=== PATIENT | male | born 1945 | race Caucasian/White ===

== ENCOUNTER 2017-05-19 15:42 | Emergency (ER) | payer MEDICARE, OTHER | END 2017-05-19 18:54 | disposition home or self-care (01) | LOC: FTE 15:42 | DX: S79.912A Unspecified injury of left hip, initial encounter (principal); J44.9 Chronic obstructive pulmonary disease, unspecified; F17.210 Nicotine dependence, cigarettes, uncomplicated; W18.39XA Other fall on same level, initial encounter; Y92.9 Unspecified place or not applicable | CPT/HCPCS: 73700; 99284-25 ==

== ENCOUNTER 2017-05-20 14:58 | Emergency (ER) | payer MEDICARE, OTHER ==
[2017-05-20] MEDS: IPRATROPIUM (NEB) 0.5 MG/2.5 ML AMP INH (23:23)
[2017-05-20] MEDS: ALBUTEROL 0.083% (NEB) 2.5 MG/3 ML AMP HHN (23:23)
[2017-05-20 23:45] LABS: ADD MAN DIFF? NO
[2017-05-20 23:47] LABS: BASOPHILS % 0.3 % (0.0-2.0); EOSINOPHILS # 0.1 10^3/ul (0.0-0.5); EOSINOPHILS % 0.6 % (0.0-7.0); HEMOGLOBIN 12.7 g/dl (14.0-18.0); LYMPHOCYTES # 1.8 10^3/ul (0.8-2.9); LYMPHOCYTES % 18.2 % (15.0-51.0); MEAN CORPUSCULAR HEMOGLOBIN 31.8 pg (29.0-33.0); MEAN CORPUSCULAR HGB CONC 33.4 g/dl (32.0-37.0); MEAN PLATELET VOLUME 9.8 fl (7.4-10.4); MONOCYTES % 10.8 % (0.0-11.0); NEUTROPHIL # 6.7 10^3/ul (1.6-7.5); NEUTROPHILS % 69.7 % (39.0-77.0); PLATELET COUNT 201 10^3/UL (140-415); RED CELL DISTRIBUTION WIDTH 14.4 % (11.5-14.5)
[2017-05-20 23:47] LABS: WHITE BLOOD COUNT 9.6 10^3/ul (4.8-10.8)
[2017-05-21 00:07] LABS: ALANINE AMINOTRANSFERASE 27 IU/L (13-69); ALBUMIN 3.4 g/dl (3.3-4.9); ALBUMIN/GLOBULIN RATIO 0.68; ALKALINE PHOSPHATASE 90 IU/L (42-121); ANION GAP 13 (8-16); ASPARTATE AMINO TRANSFERASE 28 IU/L (15-46); BILIRUBIN,INDIRECT 0.3 mg/dl (0-1.1); BILIRUBIN,TOTAL 0.3 mg/dl (0.2-1.3); BLOOD UREA NITROGEN 15 mg/dl (7-20); CALCIUM 8.4 mg/dl (8.4-10.2); CARBON DIOXIDE 27 mmol/L (21-31); CHLORIDE 98 mmol/L (97-110); CREATININE 0.59 mg/dl (0.61-1.24); GLUCOSE 112 mg/dl (70-220); POTASSIUM 3.9 mmol/L (3.5-5.1); SODIUM 134 mmol/L (135-144); TOTAL PROTEIN 8.4 g/dl (6.1-8.1)
[2017-05-21 00:16] LABS: LACTIC ACID 1.4 mmol/L (0.5-2.0)
[2017-05-21 00:16] LABS: B-TYPE NATRIURETIC PEPTIDE 690 PG/ML (0-125)
[2017-05-21 00:18] LABS: TROPONIN-I < 0.012 ng/ml (0.00-0.12)
[2017-05-21 02:42] LABS: LACTIC ACID 1.2 mmol/L (0.5-2.0)
[2017-05-21] MEDS ORDERED: ONDANSETRON 4 MG INJ IV (04:30)
[2017-05-21] MEDS ORDERED: NACL 0.9% 3 ML SYG IV (04:30)
[2017-05-21] MEDS ORDERED: ALBUTEROL 18 GM INHALER INH (04:30)
[2017-05-21] MEDS ORDERED: ALBUTEROL/IPRATROPIUM (NEB) 3 ML AMP HHN (04:30)
[2017-05-21] MEDS: morphine 2 MG INJ IV (07:09)
[2017-05-21 07:21] LABS: LACTIC ACID 1.2 mmol/L (0.5-2.0)
[2017-05-21] MEDS ORDERED: HEPARIN 5,000 UNIT/0.5 ML VIAL SC (09:00)
[2017-05-21] MEDS ORDERED: NON-FORMULARY/PATIENT OWN MED (Salmeterol Xinaf-Fluticasone* (Advair HFA*) 2 INH) IH (09:00)
[2017-05-21] MEDS ORDERED: GABAPENTIN 300 MG CAP PO (09:00)
[2017-05-21] MEDS ORDERED: METHYLPREDNISOLONE 40 MG INJ IV (09:00)
[2017-05-21] MEDS ORDERED: DOCUSATE SODIUM 100 MG CAP PO (09:00)
== END 2017-05-21 09:38 | disposition left against medical advice (07) ==
LOC: E/R 14:58 → FTE 05-21 09:38
DX: J44.1 Chronic obstructive pulmonary disease with (acute) exacerbation (principal); I50.9 Heart failure, unspecified; F17.210 Nicotine dependence, cigarettes, uncomplicated
CPT/HCPCS: 36415; 71045; 80053; 83605; 83880; 84484; 85025; 87040; 87400; 93306; 94664; 96374; 99285-25

== ENCOUNTER 2017-05-21 14:42 | Emergency (ER) | payer MEDICARE, OTHER ==
[2017-05-21] MEDS: ALBUTEROL 0.5% (NEB) 2.5 MG/0.5 ML AMP INH (19:43)
[2017-05-21] MEDS: IPRATROPIUM (NEB) 0.5 MG/2.5 ML AMP INH (19:43)
[2017-05-21 19:50] LABS: ADD MAN DIFF? NO
[2017-05-21 19:52] LABS: WHITE BLOOD COUNT 11.2 10^3/ul (4.8-10.8)
[2017-05-21 19:52] LABS: BASOPHILS % 0.4 % (0.0-2.0); EOSINOPHILS % 0.3 % (0.0-7.0); HEMATOCRIT 37.9 % (42.0-52.0); HEMOGLOBIN 12.7 g/dl (14.0-18.0); LYMPHOCYTES # 1.9 10^3/ul (0.8-2.9); LYMPHOCYTES % 17.2 % (15.0-51.0); MEAN CORPUSCULAR HEMOGLOBIN 31.8 pg (29.0-33.0); MEAN CORPUSCULAR HGB CONC 33.5 g/dl (32.0-37.0); MEAN PLATELET VOLUME 9.8 fl (7.4-10.4); MONOCYTES % 8.9 % (0.0-11.0); NEUTROPHIL # 8.2 10^3/ul (1.6-7.5); NEUTROPHILS % 72.9 % (39.0-77.0); PLATELET COUNT 227 10^3/UL (140-415); RED BLOOD COUNT 3.99 10^6/ul (4.70-6.10); RED CELL DISTRIBUTION WIDTH 14.1 % (11.5-14.5)
[2017-05-21] MEDS: METHYLPREDNISOLONE 125 MG INJ IV (19:56)
[2017-05-21] MEDS: CEFTRIAXONE 1 GM/50 ML (PMX) 50 ML IVPB (19:56)
[2017-05-21] MEDS: SODIUM CHLORIDE 0.9% 1L BAG IV* (19:57)
[2017-05-21 20:15] LABS: LACTIC ACID 1.3 mmol/L (0.5-2.0)
[2017-05-21 20:16] LABS: ALANINE AMINOTRANSFERASE 30 IU/L (13-69); ALBUMIN 3.6 g/dl (3.3-4.9); ALBUMIN/GLOBULIN RATIO 0.73; ALKALINE PHOSPHATASE 94 IU/L (42-121); ANION GAP 14 (8-16); ASPARTATE AMINO TRANSFERASE 32 IU/L (15-46); BILIRUBIN,INDIRECT 0.5 mg/dl (0-1.1); BILIRUBIN,TOTAL 0.5 mg/dl (0.2-1.3); BLOOD UREA NITROGEN 18 mg/dl (7-20); CALCIUM 8.3 mg/dl (8.4-10.2); CARBON DIOXIDE 25 mmol/L (21-31); CHLORIDE 98 mmol/L (97-110); CREATININE 0.67 mg/dl (0.61-1.24); GLUCOSE 90 mg/dl (70-220); POTASSIUM 4.4 mmol/L (3.5-5.1); SODIUM 133 mmol/L (135-144); TOTAL PROTEIN 8.5 g/dl (6.1-8.1)
[2017-05-21 20:20] LABS: PARTIAL THROMBOPLASTIN TIME 29.7 Sec (25.0-35.0); PT RATIO 1.2
[2017-05-21 20:27] LABS: TROPONIN-I < 0.012 ng/ml (0.00-0.12)
[2017-05-21] MEDS: MAGNESIUM SULFATE 2 GM/50 ML 50 ML IVPB (20:42)
[2017-05-21] MEDS: AZITHROMYCIN 500MG/NS (PMX) 250 ML IV (20:43)
[2017-05-21 21:20] LABS: INR 1.15; PROTIME 14.9 Sec (11.9-14.9)
== END 2017-05-21 23:14 | disposition home or self-care (01) ==
LOC: E/R 14:42
DX: J44.1 Chronic obstructive pulmonary disease with (acute) exacerbation (principal); J44.9 Chronic obstructive pulmonary disease, unspecified; F17.210 Nicotine dependence, cigarettes, uncomplicated
CPT/HCPCS: 36415; 71045; 80053; 83605; 84484; 85025; 85610; 85730; 87040; 93005; 94664; 96374; 96375; 99285-25

== ENCOUNTER 2017-08-30 22:00 | Inpatient (IN) | payer MEDICARE, OTHER ==
[2017-08-31] MEDS ORDERED: ONDANSETRON 4 MG INJ IV (03:30)
[2017-08-31] MEDS ORDERED: hydrALAzine 20 MG INJ IV (03:30)
[2017-08-31] MEDS ORDERED: NA PHOSPHATE/BIPHOS 133 ML ENEMA PR (03:30)
[2017-08-31] MEDS ORDERED: ACETAMINOPHEN 325 MG TAB PO (03:30)
[2017-08-31] MEDS: ALBUTEROL HFA 8 GM INHALER INH ×6 (03:30→21:28)
[2017-08-31] MEDS ORDERED: NITROGLYCERIN (SL) 0.4 MG TAB SL (03:30)
[2017-08-31] MEDS ORDERED: MAGNESIUM HYDROXIDE 30ML CUP PO (03:30)
[2017-08-31] MEDS ORDERED: DOCUSATE SODIUM 100 MG CAP PO (03:30)
[2017-08-31] MEDS ORDERED: ALBUTEROL/IPRATROPIUM (NEB) 3 ML AMP HHN (03:30)
[2017-08-31] MEDS ORDERED: LORAZEPAM 2 MG INJ IV (03:30)
[2017-08-31] MEDS ORDERED: NACL 0.9% 3 ML SYG IV (03:30)
[2017-08-31] MEDS ORDERED: VANCOMYCIN IV PER PHARMACY XX ×2 (03:30→05:30)
[2017-08-31] MEDS ORDERED: HYDROCODONE/APAP (5/325) TAB PO (03:30)
[2017-08-31 05:36] LABS: INR 1.07; PT RATIO 1.1
[2017-08-31 05:37] LABS: PARTIAL THROMBOPLASTIN TIME 32.1 Sec (25.0-35.0)
[2017-08-31 05:40] LABS: FREE T4 (FREE THYROXINE) 1.06 ng/dl (0.78-2.44)
[2017-08-31] MEDS: SOD CHLORIDE 0.45% 1,000 ML IV (06:45)
[2017-08-31] MEDS: PIPER-TAZO 3.375 GM IV (PMX) 100 ML IVPB ×3 (06:45→18:53)
[2017-08-31 09:14] LABS: BLOOD UREA NITROGEN 19 mg/dl (7-20)
[2017-08-31 09:14] LABS: CREATININE 0.66 mg/dl (0.61-1.24)
[2017-08-31] MEDS: morphine 2 MG INJ IV (09:26)
[2017-08-31] MEDS: GABAPENTIN 300 MG CAP PO ×3 (09:27→21:29)
[2017-08-31] MEDS: DOCUSATE SODIUM 100 MG CAP PO ×2 (09:27→21:29)
[2017-08-31] MEDS: VANCOMYCIN 1 GM 250 ML IVPB (09:28)
[2017-08-31] MEDS: HEPARIN 5,000 UNIT/0.5 ML VIAL SC ×2 (09:29→21:32)
[2017-08-31] MEDS: HYDROmorphONE 0.5 MG/0.5 ML SYG IV (15:06)
[2017-08-31] MEDS: VANCOMYCIN 500MG/NS (PMX) 100 ML IVPB ×2 (21:00→22:47)
[2017-09-01] MEDS: PIPER-TAZO 3.375 GM IV (PMX) 100 ML IVPB ×3 (00:12→12:04)
[2017-09-01] MEDS: ALBUTEROL HFA 8 GM INHALER INH ×4 (00:13→12:05)
[2017-09-01] MEDS: HYDROmorphONE 0.5 MG/0.5 ML SYG IV (04:38)
[2017-09-01 05:07] LABS: ADD MAN DIFF? NO
[2017-09-01 05:12] LABS: WHITE BLOOD COUNT 5.3 10^3/ul (4.8-10.8)
[2017-09-01 05:12] LABS: BASOPHIL # 0.1 10^3/ul (0.0-0.1); BASOPHILS % 0.9 % (0.0-2.0); EOSINOPHILS # 0.2 10^3/ul (0.0-0.5); EOSINOPHILS % 4.3 % (0.0-7.0); HEMOGLOBIN 12.3 g/dl (14.0-18.0); LYMPHOCYTES # 1.8 10^3/ul (0.8-2.9); LYMPHOCYTES % 34.1 % (15.0-51.0); MEAN CORPUSCULAR HEMOGLOBIN 30.8 pg (29.0-33.0); MEAN CORPUSCULAR HGB CONC 32.4 g/dl (32.0-37.0); MEAN PLATELET VOLUME 10.6 fl (7.4-10.4); MONOCYTE # 0.6 10^3/ul (0.3-0.9); MONOCYTES % 11.1 % (0.0-11.0); NEUTROPHIL # 2.6 10^3/ul (1.6-7.5); NEUTROPHILS % 49.4 % (39.0-77.0); PLATELET COUNT 208 10^3/UL (140-415); RED CELL DISTRIBUTION WIDTH 16.1 % (11.5-14.5)
[2017-09-01 05:28] LABS: ANION GAP 12 (8-16); BLOOD UREA NITROGEN 16 mg/dl (7-20); CALCIUM 9.1 mg/dl (8.4-10.2); CARBON DIOXIDE 27 mmol/L (21-31); CHLORIDE 107 mmol/L (97-110); CHOL/HDL RATIO 3.2 RATIO; CHOLESTEROL 130 mg/dl (100-200); CREATININE 0.72 mg/dl (0.61-1.24); GLUCOSE 100 mg/dl (70-220); HDL CHOLESTEROL 40 mg/dl (31-75); LDL CHOLESTEROL,CALCULATED 77 mg/dl; MAGNESIUM 1.8 mg/dl (1.7-2.5); PHOSPHORUS 5.1 mg/dl (2.5-4.9); POTASSIUM 4.3 mmol/L (3.5-5.1); SODIUM 142 mmol/L (135-144); TRIGLYCERIDES 64 mg/dl (0-149)
[2017-09-01 07:16] LABS: HEMOGLOBIN A1C 5.7 % (0-5.9)
[2017-09-01] MEDS: VANCOMYCIN 500MG/NS (PMX) 100 ML IVPB (08:43)
[2017-09-01] MEDS: DOCUSATE SODIUM 100 MG CAP PO (08:44)
[2017-09-01] MEDS: GABAPENTIN 300 MG CAP PO ×2 (08:44→12:04)
[2017-09-01] MEDS: HEPARIN 5,000 UNIT/0.5 ML VIAL SC (08:51)
[2017-09-01] MEDS: HYDROmorphONE 4 MG TAB PO (12:05)
== END 2017-09-01 14:50 | disposition home or self-care (01) | DRG 603 ==
LOC: MS1 22:00
PROVIDERS: Hospitalist
DX: L03.113 Cellulitis of right upper limb (principal); M86.9 Osteomyelitis, unspecified; J44.9 Chronic obstructive pulmonary disease, unspecified; F17.200 Nicotine dependence, unspecified, uncomplicated; M54.5 Low back pain; D64.9 Anemia, unspecified; B19.20 Unspecified viral hepatitis C without hepatic coma; G89.29 Other chronic pain
CPT/HCPCS: 73218; 80048; 80061; 82565; 83036; 83735; 84100; 84439; 84443; 84520; 85025; 85610; 85730; 97161

== ENCOUNTER 2017-10-23 19:13 | Emergency (ER) | payer MEDICARE, OTHER ==
[2017-10-23] MEDS: TRIMETHOPRIM/SULFAMETHOX (DS) TAB PO (21:07)
[2017-10-23] MEDS: CEPHALEXIN 500 MG CAP PO (21:07)
== END 2017-10-23 21:21 | disposition home or self-care (01) ==
LOC: FTE 19:13
DX: L03.115 Cellulitis of right lower limb (principal); J44.9 Chronic obstructive pulmonary disease, unspecified; F17.210 Nicotine dependence, cigarettes, uncomplicated
CPT/HCPCS: 99284

== ENCOUNTER 2018-06-17 11:24 | Emergency (ER) | payer MEDICARE, OTHER ==
[2018-06-17 14:21] LABS: ADD MAN DIFF? NO
[2018-06-17 14:27] LABS: WHITE BLOOD COUNT 6.6 10^3/ul (4.8-10.8)
[2018-06-17 14:27] LABS: BASOPHILS % 0.6 % (0.0-2.0); EOSINOPHILS # 0.1 10^3/ul (0.0-0.5); EOSINOPHILS % 0.8 % (0.0-7.0); HEMATOCRIT 42.4 % (42.0-52.0); HEMOGLOBIN 13.7 g/dl (14.0-18.0); LYMPHOCYTES # 1.6 10^3/ul (0.8-2.9); LYMPHOCYTES % 23.8 % (15.0-51.0); MEAN CORPUSCULAR HEMOGLOBIN 30.6 pg (29.0-33.0); MEAN CORPUSCULAR HGB CONC 32.3 g/dl (32.0-37.0); MEAN CORPUSCULAR VOLUME 94.6 fl (82.0-101.0); MEAN PLATELET VOLUME 9.7 fl (7.4-10.4); MONOCYTE # 0.6 10^3/ul (0.3-0.9); MONOCYTES % 8.4 % (0.0-11.0); NEUTROPHIL # 4.4 10^3/ul (1.6-7.5); NEUTROPHILS % 66.2 % (39.0-77.0); PLATELET COUNT 213 10^3/UL (140-415); RED BLOOD COUNT 4.48 10^6/ul (4.70-6.10); RED CELL DISTRIBUTION WIDTH 14.2 % (11.5-14.5)
[2018-06-17] MEDS: SODIUM CHLORIDE 0.9% 1L BAG IV* (14:30)
[2018-06-17] MEDS: PIPER-TAZO 3.375 GM IV (PMX) 100 ML IVPB (14:31)
[2018-06-17 14:45] LABS: INR 0.97
[2018-06-17 14:46] LABS: PARTIAL THROMBOPLASTIN TIME 29.9 Sec (23.0-35.0)
[2018-06-17 14:48] LABS: ANION GAP 6 (5-13); BLOOD UREA NITROGEN 20 mg/dl (7-20); C-REACTIVE PROTEIN 0.7 mg/dl (0.0-0.9); CALCIUM 9.3 mg/dl (8.4-10.2); CARBON DIOXIDE 32 mmol/L (21-31); CHLORIDE 98 mmol/L (97-110); CREATININE 0.78 mg/dl (0.61-1.24); GLUCOSE 79 mg/dl (70-220); POTASSIUM 4.5 mmol/L (3.5-5.1); SODIUM 136 mmol/L (135-144)
[2018-06-17] MEDS: CLINDAMYCIN 900 MG/D5W (PMX) 50 ML IVPB (15:03)
[2018-06-17 15:39] LABS: ERYTHROCYTE SEDIMENTATION RATE 55 mm/Hr (0-20)
[2018-06-17] MEDS: VANCOMYCIN 1 GM (PMX) 250 ML IVPB (16:01)
== END 2018-06-17 17:40 | disposition home or self-care (01) ==
LOC: E/R 11:24
DX: L03.116 Cellulitis of left lower limb (principal); F11.10 Opioid abuse, uncomplicated; R40.2142 Coma scale, eyes open, spontaneous, at arrival to emergency department; R40.2252 Coma scale, best verbal response, oriented, at arrival to emergency department; R40.2362 Coma scale, best motor response, obeys commands, at arrival to emergency department; J44.9 Chronic obstructive pulmonary disease, unspecified; F17.210 Nicotine dependence, cigarettes, uncomplicated; M79.672 Pain in left foot
CPT/HCPCS: 73630; 73630-LT; 80048; 83605; 85025; 85610; 85651; 85730; 86140; 87040; 93005; 96374; 96375; 99285-25

== ENCOUNTER 2018-09-21 11:41 | Emergency (ER) | payer MEDICARE, OTHER | END 2018-09-21 13:25 | disposition home or self-care (01) | LOC: FTE 11:41 | DX: L02.413 Cutaneous abscess of right upper limb (principal); F17.210 Nicotine dependence, cigarettes, uncomplicated; J44.9 Chronic obstructive pulmonary disease, unspecified; L03.114 Cellulitis of left upper limb | CPT/HCPCS: 99283 ==

== ENCOUNTER 2018-10-10 12:03 | Emergency (ER) | payer MEDICARE, OTHER | END 2018-10-10 15:45 | disposition left against medical advice (07) | LOC: FTE 12:03 | DX: S92.501A Displaced unspecified fracture of right lesser toe(s), initial encounter for closed fracture (principal); F17.210 Nicotine dependence, cigarettes, uncomplicated; J44.9 Chronic obstructive pulmonary disease, unspecified; W22.8XXA Striking against or struck by other objects, initial encounter; Y92.9 Unspecified place or not applicable | CPT/HCPCS: 73630; 99283-25 ==